=== PATIENT | female | born 1995 | race Caucasian/White ===

== ENCOUNTER 2018-08-13 10:56 | Emergency (ER) | payer MEDICAID, OTHER ==
[~2018-08-13] VITALS: Ht 162.6 cm; Wt 67.6 kg
[2018-08-13 11:14] VITALS: BP 109/76
--- NOTE | 2018-08-13 11:20 | NUR ---
PT AMBULATES TO BED 2
--- NOTE | 2018-08-13 11:30 | NUR ---
bib self with c/o intermittent n/v/d and anxiety x 5 days. Patient sts unable to tolerate food x 5 days. Non bloody emesis, undigested food/"yellow" emesis. SKIN IS PINK/WARM/DRY; AAOX4 WITH EVEN AND STEADY GAIT; LUNGS CLEAR BL; PT DENIES ANY FEVER, CP, SOB, OR COUGH AT THIS TIME; PATIENT STATES PAIN OF 0/10 AT THIS TIME; PATIENT POSITIONED FOR COMFORT; HOB ELEVATED; BEDRAILS UP X2; BED DOWN. ER MD MADE AWARE OF PT STATUS.
--- NOTE | 2018-08-13 12:26 | NUR ---
Patient discharged with v/s stable. Written and verbal after care instructions given and explained. Patient alert, oriented and verbalized understanding of instructions. Ambulatory with steady gait. All questions addressed prior to discharge. ID band removed. Patient advised to follow up with PMD. Rx of PEPCID, NON-ASPIRIN ACETAMINOPHEN, ZOFRAN ODT& AMBIEN given. Patient educated on indication of medication including possible reaction and side effects. Opportunity to ask questions provided and answered.
[2018-08-13 12:28] VITALS: BP 111/75
== END 2018-08-13 12:26 | disposition home or self-care (01) ==
LOC: MED 10:56
DX: K29.70 Gastritis, unspecified, without bleeding (principal); F41.9 Anxiety disorder, unspecified; G47.00 Insomnia, unspecified
CPT/HCPCS: 81002; 81025; 99284

== ENCOUNTER 2019-10-19 19:25 | Emergency (ER) | payer OTHER ==
[~2019-10-19] VITALS: Ht 162.6 cm; Wt 68.0 kg
[2019-10-19 19:30] VITALS: BP 106/60
--- NOTE | 2019-10-19 19:36 | NUR ---
24 Y/O FEMALE N/V FOR 2 DAYS, SEEN IN AN URGENT TODAY FOR RE EVALUATE, 7 WEEKS, LMP 10.24. A/O X4 BREATHING UNLABORED AND SYMMETRICAL. GI: ABDOMINAL BOWEL SOUNDS NOTED ON ALL FOUR QUADRANTS. NO PAIN AT THIS TIME. ERMD MADE AWARE OF STATUS. SIDE RAILSX1. PLACED ON MONITOR PMH: NONE RX:DENIES NKDA
--- NOTE | 2019-10-19 19:36 | NUR ---
TO LOBBY A/W BED AMBULATORY
[2019-10-19] MEDS ORDERED: NACL 0.9% 1,000 ML IV ONE (20:55)
[2019-10-19] MEDS ORDERED: ONDANSETRON 4 MG/2 ML VIAL IVP ONE (20:55)
[2019-10-19 21:45] LABS: BASOPHILS # (AUTO) 0.3 K/uL (0.00-0.22); BASOPHILS % (AUTO) 3.2 % (0.0-2.0); EOSINOPHILS # (AUTO) 0.1 K/uL (0-0.4); EOSINOPHILS % (AUTO) 0.5 % (0.0-4.0); HEMATOCRIT 40.1 % (36-48); HEMOGLOBIN 12.9 g/dL (12.0-16.0); LYMPHOCYTES # (AUTO) 1.1 K/uL (2.5-16.5); LYMPHOCYTES % (AUTO) 10.5 % (20.5-51.1); MEAN CORPUSCULAR HEMOGLOBIN 29 pg (27-31); MEAN CORPUSCULAR HGB CONC 32 g/dL (33-37); MONOCYTES # (AUTO) 0.7 K/uL (0.8-1.0); MONOCYTES % (AUTO) 6.6 % (1.7-9.3); NEUTROPHILS # (AUTO) 8.1 K/uL (1.8-7.7); NEUTROPHILS % (AUTO) 79.2 % (42.2-75.2); PLATELET COUNT (AUTO) 261 K/uL (140-450); RED BLOOD CELL COUNT(AUTO) 4.41 MIL/uL (4.20-5.40); RED CELL DISTRIBUTION WIDTH 14.6 % (11.6-13.7); WHITE BLOOD COUNT (AUTO) 10.2 K/uL (4.8-10.8)
--- NOTE | 2019-10-19 21:45 | NUR ---
BOLUS STOPPED DUE TO INFILTRATED IV.
--- NOTE | 2019-10-19 22:00 | NUR ---
PLACED 2O GAUGE RAC IV. NORMAL SALINE BOLUS CONTINUED.
[2019-10-19 22:22] LABS: ANION GAP 14.8 (8-16); CARBON DIOXIDE 26.7 mmol/L (21-32); CREATININE 0.7 mg/dL (0.6-1.3); POTASSIUM 3.5 mmol/L (3.5-5.1)
[2019-10-19 22:28] LABS: ALBUMIN 4.2 g/dL (3.4-5.0); TOTAL BILIRUBIN 0.7 mg/dL (0.0-1.0)
[2019-10-19 23:37] LABS: APPEARANCE,URINE CLEAR (CLEAR); BILIRUBIN,URINE NEGATIVE (NEGATIVE); BLOOD, URINE NEGATIVE (NEGATIVE); COLOR,URINE YELLOW (YELLOW); LEUKOCYTE ESTERASE ,URINE 1+ (NEGATIVE); NITRITE, URINE NEGATIVE (NEGATIVE); UGLUCOSE NEGATIVE (NEGATIVE)
[2019-10-19 23:52] LABS: RBC,URINE 0-5 /HPF (0-5)
[2019-10-20] MEDS ORDERED: DEXTROSE 5% 50 ML IV ONE (00:18)
[2019-10-20] MEDS ORDERED: cefTRIAXone 1,000 MG VIAL ONE (00:18)
[2019-10-20 00:46] VITALS: BP 107/61
--- NOTE | 2019-10-20 00:46 | NUR ---
Patient discharged with v/s stable. Written and verbal after care instructions given and explained. Patient alert, oriented and verbalized understanding of instructions. Ambulatory with steady gait. All questions addressed prior to discharge. ID band removed. Patient advised to follow up with PMD. Rx of MACROBID given. Patient educated on indication of medication including possible reaction and side effects. Opportunity to ask questions provided and answered. DISCHARGED BY DR. MOORE.
--- NOTE | 2019-10-20 00:46 | NUR ---
Note [email or web address] in EDM - 10/20/19 at 0423 by ITZ Patient discharged with v/s stable. Written and verbal after care instructions given and explained. Patient alert, oriented and verbalized understanding of instructions. Ambulatory with steady gait. All questions addressed prior to discharge. ID band removed. Patient advised to follow up with PMD. Rx of MACROBID given. Patient educated on indication of medication including possible reaction and side effects. Opportunity to ask questions provided and answered.
== END 2019-10-20 00:46 | disposition home or self-care (01) ==
LOC: MED 19:25
DX: O21.0 Mild hyperemesis gravidarum (principal); N39.0 Urinary tract infection, site not specified; Z3A.01 Less than 8 weeks gestation of pregnancy
CPT/HCPCS: 36415; 76801; 80053; 81001; 81025; 84702; 85025; 86900; 86901; 87086; 96361; 96365; 96375; 99284; J0696; J2405; J7060; Q0092

== ENCOUNTER 2020-09-09 13:04 | Outpatient (CLI) | payer OTHER | END 2020-09-09 20:42 | disposition home or self-care (01) | LOC: MLB 13:04 | PROVIDERS: ATTEND Obstetrics & Gynecology | DX: Z20.828 Contact with and (suspected) exposure to other viral communicable diseases (principal) | CPT/HCPCS: U0003 ==

== ENCOUNTER 2020-09-16 05:46 | Day surgery (SDC) | payer OTHER ==
[~2020-09-16] VITALS: Ht 162.6 cm; Wt 68.0 kg
[2020-09-16] MEDS ORDERED: POTASSIUM IODIDE/IODINE 5% 14 ML BTL ONE (07:15)
[2020-09-16] MEDS ORDERED: BUPIVACAINE-MPF 0.25% 30 ML VIAL INJ ONE (07:16)
[2020-09-16] MEDS ORDERED: KETOROLAC 30 MG/ML VIAL ONE (07:25)
[2020-09-16] MEDS ORDERED: METOCLOPRAMIDE 10 MG/2 ML INJ VIAL ONE (07:25)
[2020-09-16] MEDS ORDERED: SEVOFLURANE 250 ML BTL INH ONE (07:25)
[2020-09-16] MEDS ORDERED: MEPERIDINE 25 MG/ML SYR ONE (07:25)
[2020-09-16] MEDS ORDERED: fentaNYL citrate 0.05 MG/ML VIAL ONE (07:25)
[2020-09-16] MEDS ORDERED: PROPOFOL 200 MG/20 ML VIAL IV ONE (07:25)
[2020-09-16] MEDS ORDERED: NEOSTIGMINE 1:1000 10 MG/10 ML VIAL ONE (07:25)
[2020-09-16] MEDS ORDERED: ROCURONIUM 50 MG/5 ML VIAL IV ONE (07:25)
[2020-09-16] MEDS ORDERED: GLYCOPYRROLATE 0.2 MG/ML VIAL ONE (07:25)
[2020-09-16] MEDS ORDERED: ONDANSETRON 4 MG/2 ML VIAL ONE (07:25)
[2020-09-16] MEDS ORDERED: DEXAMETHASONE 4 MG/ML VIAL ONE (07:25)
[2020-09-16] MEDS ORDERED: LIDOCAINE 2% 100 MG/5 ML SYR IVP ONE (07:25)
[2020-09-16] MEDS ORDERED: MEPERIDINE 25 MG/ML SYR IVP PRN (08:25)
[2020-09-16] MEDS ORDERED: ONDANSETRON 4 MG/2 ML VIAL IVP PRN (08:25)
[2020-09-16] MEDS ORDERED: diphenhydrAMINE 50 MG/ML VIAL IVP PRN (08:25)
[2020-09-16] MEDS ORDERED: fentaNYL citrate 0.05 MG/ML VIAL IVP PRN (08:25)
[2020-09-16] MEDS ORDERED: LACTATED RINGERS 1,000 ML IV SCH (08:25)
[2020-09-16] MEDS ORDERED: oxyCODONE/APAP 5/325 MG 1 TAB TAB PO PRN (08:25)
== END 2020-09-16 09:43 | disposition home or self-care (01) ==
LOC: MDS 05:46 → MMU 05:47 → MDS 09:43
PROVIDERS: ATTEND Obstetrics & Gynecology
DX: R87.613 High grade squamous intraepithelial lesion on cytologic smear of cervix (HGSIL) (principal)
CPT/HCPCS: 36415; 57522; 81025; 86886; 86900; 86901; 88305; 88307; J1100; J1885; J2001; J2175; J2405; J2704; J2710; J2765; J3010; J3490; J7120